=== PATIENT | female | born 1955 | race Two or more races ===

== ENCOUNTER 2018-10-07 08:41 | Outpatient (CLI) | payer OTHER | END 2018-10-07 08:45 | disposition home or self-care (01) | LOC: SONOGRAMA 08:41 | DX: E04.2 Nontoxic multinodular goiter (principal) ==

== ENCOUNTER 2024-12-29 10:57 | Outpatient (CLI) | payer OTHER | END 2024-12-29 11:00 | disposition home or self-care (01) | LOC: SONOGRAMA 10:57 | PROVIDERS: ATTEND Pathology Anatomic Pathology & Clinical Pathology | DX: D34 Benign neoplasm of thyroid gland (principal); E07.89 Other specified disorders of thyroid; E04.2 Nontoxic multinodular goiter ==